=== PATIENT | male | born 1975 | race Two or more races ===

== ENCOUNTER 2017-10-28 15:28 | Emergency (ER) | payer OTHER ==
[~2017-10-28] VITALS: Ht 167.6 cm; Wt 108.9 kg
[2017-10-28 15:34] VITALS: BP 138/81
[2017-10-28] MEDS ORDERED: traMADol HCL 50 MG TAB PO ONE (17:45)
== END 2017-10-28 18:30 | disposition home or self-care (01) ==
LOC: ER 15:36
DX: S60.221A Contusion of right hand, initial encounter (principal); W18.09XA Striking against other object with subsequent fall, initial encounter; Y93.89 Activity, other specified; Y92.89 Other specified places as the place of occurrence of the external cause; Y99.8 Other external cause status
CPT/HCPCS: 73130